=== PATIENT | male | born 1990 | race Caucasian/White ===

== ENCOUNTER 2016-10-21 12:57 | Emergency (ER) | payer OTHER ==
[~2016-10-21] VITALS: Ht 175.3 cm; Wt 71.6 kg
[~2016-10-21 12:57] MED LIST: ACET-1311 PO; BND25X PO; CETI10TA84 PO; NAPR1TAB9 PO; SUDAFED PE PO
[2016-10-21 13:00] VITALS: TEMP 36.8; Ht 175.3 cm; Wt 71.6 kg
--- NOTE | 2016-10-21 13:28 | EMERGENCY ROOM VISIT NOTE ---
ED Visit Note First contact with patient: 13:02 CHIEF COMPLAINT: Hand laceration HISTORY OF PRESENT ILLNESS: This 26-year-old male patient presents to the emergency department ambulatory after cutting the left hand by using a chop saw at work just prior to arrival. The bleeding has stopped. Denies weakness or numbness of the hand or fingers. He rates his discomfort a 10/10. The patient denies any other injuries. The patient's Tetanus shot is not up to date. REVIEW OF SYSTEMS: A 6 system review of systems was completed with positives and pertinent negatives listed in the HPI. ALLERGIES: No known drug allergies MEDICATIONS: See nursing notes PMH: Seasonal allergies SOCIAL HISTORY: The patient is employed. He is a smoker PHYSICAL EXAM: Vital Signs: Reviewed Nurse's notes, vital signs stable. GENERAL : This is a 26-year-old male, in no acute distress, well-developed, well- nourished. SKIN: There is a 3.5 cm long laceration on the ulnar side of the left hand which is transverse to the hand . The edges gape apart with traction. There is no foreign material in the wound and it looks clean. There is minimal bleeding. No deep structures such as tendons, bones, or nerves are seen in the base of the wound. Normal strength and movement of the fingers and wrist. Capillary refill less than 2 seconds. Normal sensation to light and sharp touch. EMERGENCY DEPARTMENT COURSE: I examined the patient. An x-ray was obtained and reviewed by myself and radiology. There is no evidence for bony involvement or foreign body. Using sterile technique the wound was cleaned with Betadine. The area was sterilely draped. 4 ml of 1% buffered lidocaine was used to anesthetize the laceration on the hand. Once the patient was numb, the wound was copiously irrigated under pressure with sterile saline. The wound was explored and there did not appear to be any involvement of bone or tendon. The laceration was repaired using 5 simple interrupted 5-0 nylon sutures with the wound edges being well approximated. The patient tolerated the procedure well. The bleeding stopped. The area was cleaned with sterile saline and dressed with bacitracin ointment and bandage. The patient was given Td immunization. The patient was placed in a metal splint He was encouraged to follow-up with orthopedics if he has any numbness, tingling , weakness or any difficulty moving the hand or finger. I did not see any obvious tendon injury on examination. The patient should monitor closely. The patient was discharged home in good condition. DIAGNOSIS: Hand laceration DISCHARGE INSTRUCTIONS & TREATMENT: Keep wound clean and dry. Do not allow any crusting or dried blood to accumulate on sutures. If this occurs, use a 1:1 solution of hydrogen peroxide/water on a Q-tip to clean the wound. Use an antibiotic ointment for 3-4 days, then let wound dry. Suture removal in 10-12 days. Return sooner for any signs of infection (increasing redness, swelling, drainage). Ice and elevate for swelling and pain. Ibuprofen 600 mg and Tylenol 1000 mg every 6 hrs for pain. Keep covered when in sun until sutures removed then SPF 50 or higher for one year. Vitamin E oil if desired two weeks after suture removal for reduction of scar. LEFT HAND 3 VIEWS CLINICAL HISTORY: Left hand injury. Laceration. FINDINGS: 3 views of left hand are obtained. No prior studies are available for comparison at the time of dictation. The skeletal structures are well mineralized. No fracture is seen. The joint spaces of the hand are well-maintained. There is soft tissue edema and a cutaneous defect identified along the ulnar aspect of the hand at the level of the fifth metacarpal head consistent with laceration. No radiodense foreign body is seen. IMPRESSION: 1. No fracture is identified. 2. Soft tissue injury/laceration along the ulnar aspect of the hand as above. Current/Historical Medications No Active Prescriptions or Reported Meds Allergies Coded Allergies: No Known Allergies (Unverified , 05/02/11) Vital Signs Date Time Temp Pulse Resp B/P Pulse Ox O2 Delivery O2 Flow Rate FiO2 10/21/16 15:22 90 15 122/78 98 10/21/16 13:00 36.8 113 18 148/80 98 Room Air Medications Administered Medications (Trade) Dose Ordered Sig/Mariya Route Start Time Stop Time Status Last Admin Dose Admin Diphtheria/ Pertussis/Tetanus Vacc (Adacel Inj) 0.5 ml ONCE ONCE IM. 10/21/16 13:30 10/21/16 13:31 DC 10/21/16 13:31 0.5 ML Lidocaine HCl (Buffered Lidocaine 1% Inj) 20 ml NOW ONCE INFIL 10/21/16 13:30 10/21/16 13:31 DC 10/21/16 13:32 20 ML Departure Information Impression Primary Impression: Hand laceration Dispostion Home / Self-Care Condition GOOD Prescriptions No Active Prescriptions or Reported Meds Referrals No Doctor, Assigned (PCP) Abram Heart MD Patient Instructions ED Laceration Hand, [facility] Additional Instructions Keep wound clean and dry. Do not allow any crusting or dried blood to accumulate on sutures. If this occurs, use a 1:1 solution of hydrogen peroxide/ water on a Q-tip to clean the wound. Use an antibiotic ointment for 3-4 days, then let wound dry. Suture removal in 10-12 days. Return sooner for any signs of infection (increasing redness, swelling, drainage). Ice and elevate for swelling and pain. Ibuprofen 600 mg every 6 hrs for pain. Keep covered when in sun until sutures removed then SPF 50 or higher for one year. Vitamin E oil if desired two weeks after suture removal for reduction of scar. Wear the splint over the next 10-12 days Follow-up with orthopedics with any persistent numbness, weakness or difficulty moving the hand or finger Problem Qualifiers Primary Impression: Hand laceration Encounter type: initial encounter Foreign body presence: without foreign body Laterality: left Qualified Codes: S61.412A - Laceration without foreign body of left hand, initial encounter
[2016-10-21] MEDS ORDERED: XYLOCAINE 1%/SOD BICARB 20 ML VIAL INFIL ONE (13:30)
[2016-10-21] MEDS ORDERED: DIPHTHERIA/TETANUS/PERTUSSIS 0.5 ML SYR/VIAL IM. ONE (13:30)
--- NOTE | 2016-10-21 14:18 | DIAGNOSTIC IMAGING REPORT ---
LEFT HAND 3 VIEWS CLINICAL HISTORY: Left hand injury. Laceration. FINDINGS: 3 views of left hand are obtained. No prior studies are available for comparison at the time of dictation. The skeletal structures are well mineralized. No fracture is seen. The joint spaces of the hand are well-maintained. There is soft tissue edema and a cutaneous defect identified along the ulnar aspect of the hand at the level of the fifth metacarpal head consistent with laceration. No radiodense foreign body is seen. IMPRESSION: 1. No fracture is identified. 2. Soft tissue injury/laceration along the ulnar aspect of the hand as above. Electronically signed by: Amari Patel M.D. 10/21/2016 2:17 PM Dictated Date/Time: 10/21/2016 2:15 PM
[2016-10-21 15:22] VITALS: BP 122/78; PULSE 90; O2SAT 98
== END 2016-10-21 15:24 | disposition home or self-care (01) ==
LOC: C.EDB 12:59 → C.EDD 15:24
DX: S61.412A Laceration without foreign body of left hand, initial encounter (principal); Z23 Encounter for immunization; W29.3XXA Contact with powered garden and outdoor hand tools and machinery, initial encounter; Y99.0 Civilian activity done for income or pay; F17.200 Nicotine dependence, unspecified, uncomplicated

== ENCOUNTER 2016-10-31 16:34 | Emergency (ER) | payer OTHER ==
[~2016-10-31] VITALS: Ht 175.3 cm; Wt 72.2 kg
[2016-10-31 16:41] VITALS: TEMP 36.6; Ht 175.3 cm; Wt 72.2 kg
[2016-10-31] MEDS ORDERED: MULT-513 PO (16:48)
[2016-10-31] MEDS ORDERED: OMEG10007 PO (16:48)
[2016-10-31] MEDS ORDERED: NAPR1TAB9 PO (16:48)
[2016-10-31] MEDS ORDERED: B-CO1CAP17 PO (16:48)
[2016-10-31 17:00] VITALS: BP 133/84; PULSE 107; O2SAT 97
--- NOTE | 2016-10-31 17:02 | EMERGENCY ROOM VISIT NOTE ---
ED Visit Note First contact with patient: 16:44 CHIEF COMPLAINT: Suture removal This patient returns to the ED today for removal of sutures that were placed 10 days ago. The patient is wearing the splint fairly regularly. He noted a little bit of bloody drainage when he bumped the wound of days ago. He denies any pain, swelling or redness. The patient feels like the laceration is healing well. REVIEW OF SYSTEMS: Head: No headache, injury or neck pain. Skin: No rash, new lesions, or masses. General: No fever or chills, fatigue, loss of appetite , or significant recent weight gain or loss. PMH: The patient is healthy; there is no significant medical or surgical history. SOCIAL HISTORY: Patient lives at home. PHYSICAL EXAM: Vital Signs: Reviewed Nurse's notes. There is a sutured wound on the ulnar aspect of the left hand, over the fifth metacarpal head. The wound is moist and slightly macerated. There is no erythema, swelling, or tenderness. EMERGENCY DEPARTMENT COURSE: 2 of the central sutures were removed, and there was some gaping of the wound edges, therefore it was advised that the patient with the sutures in for an additional 3-4 days. Benzoin and Steri-Strips were applied. He is encouraged to leave the bandage off, to allow the wound to dry out, and to stop using antibiotic ointment. He does not have any evidence for infection. Current/Historical Medications Scheduled Fish Oil ([place]-3), 2 CAP PO QPM Multivitamins/Minerals (Mvi With Minerals), 1 TAB PO DAILY Vitamin B Cmplx/Vitc/Folic Ac (Nephrocaps), 1 CAP PO DAILY Scheduled PRN Naproxen (Aleve), 220 MG PO DAILY PRN for Pain Allergies Coded Allergies: No Known Allergies (Unverified , 05/02/11) Vital Signs Date Time Temp Pulse Resp B/P Pulse Ox O2 Delivery O2 Flow Rate FiO2 10/31/16 16:41 36.6 107 16 133/84 97 Room Air Departure Information Impression Primary Impression: Hand laceration Additional Impression: Encounter for removal of sutures Referrals No Doctor, Assigned (PCP) Patient Instructions [facility] Additional Instructions Stopped using antibiotic ointment on the wound. Cover only as needed to keep the wound clean. Return to the emergency department in 3-4 days for removal of the remaining sutures. Problem Qualifiers
== END 2016-10-31 17:00 | disposition home or self-care (01) ==
LOC: C.EDB 16:35 → C.EDD 17:00
DX: Z48.02 Encounter for removal of sutures (principal)

== ENCOUNTER 2016-11-07 16:30 | Emergency (ER) | payer OTHER ==
[~2016-11-07] VITALS: Ht 175.3 cm; Wt 71.5 kg
[~2016-11-07 16:30] MED LIST changes: -ACET-1311 PO; +B-CO1CAP17 PO; -BND25X PO; -CETI10TA84 PO; +MULT-513 PO; +OMEG10007 PO; -SUDAFED PE PO
[2016-11-07 16:35] VITALS: BP 126/79; PULSE 105; TEMP 36.8; O2SAT 97; Ht 175.3 cm; Wt 71.5 kg
--- NOTE | 2016-11-07 16:46 | EMERGENCY ROOM VISIT NOTE ---
History First contact with patient: 16:37 Chief Complaint: SUTURE/STAPLE REMOVAL Stated Complaint: STITCHES NEED REMOVED FROM LF HAND Nursing Triage Summary: Here for suture removal in left hand History of Present Illness The patient is a 26 year old male who presents to the Emergency Room for wound reevaluation and possible stitch removal from the left hand laceration that was initially repaired in our facility on 10/21/16. He returned 10 days later for possible suture removal, however there was too much maceration to the wound. Partial stitch removal was performed, and Steri-Strips applied. His last evaluation was 7 days ago, or 17 days from the initial injury. The patient denies any wound complications. He does continue to wrap the wound while working. Review of Systems 6 system review was performed and was negative except for pertinent positives and negatives as indicated in history of present illness Past Medical/Surgical History See previous records Social History Smoking Status: Current Every Day Smoker Alcohol Use: none Current/Historical Medications Scheduled Fish Oil ([place]-3), 2 CAP PO QPM Multivitamins/Minerals (Mvi With Minerals), 1 TAB PO DAILY Vitamin B Cmplx/Vitc/Folic Ac (Nephrocaps), 1 CAP PO DAILY Scheduled PRN Naproxen (Aleve), 220 MG PO DAILY PRN for Pain Allergies Coded Allergies: No Known Allergies (Unverified , 05/02/11) Physical Exam Vital Signs Date Time Temp Pulse Resp B/P Pulse Ox O2 Delivery O2 Flow Rate FiO2 11/07/16 16:35 36.8 105 16 126/79 97 Room Air Physical Exam MUSCULOSKELETAL: Examination of the ulnar aspect of the left hand shows a well- healed laceration. 3 sutures were removed without any competitions or diastases. There is no erythema, fluctuance or drainage from the wound. The patient has full flexion and extension of the fingers, and capillary refill of the fingers are less than 2 seconds. Medical Decision & Procedures ED Course The patient was provided additional verbal wound care instructions, including avoiding any undue stress on the wound. Watch for any signs of infection, and follow-up with PCP or return to the emergency department as needed. Impression Primary Impression: Encounter for removal of sutures Additional Impression: Laceration of left hand Departure Information Referrals No Doctor, Assigned (PCP) Patient Instructions [facility] Problem Qualifiers Additional Impression: Laceration of left hand Encounter type: subsequent encounter Foreign body presence: without foreign body Qualified Codes: S61.412D - Laceration without foreign body of left hand , subsequent encounter
== END 2016-11-07 17:00 | disposition home or self-care (01) ==
LOC: C.EDB 16:31 → C.EDD 17:00
DX: S61.412D Laceration without foreign body of left hand, subsequent encounter (principal); X58.XXXD Exposure to other specified factors, subsequent encounter; F17.200 Nicotine dependence, unspecified, uncomplicated